=== PATIENT | female | born 1970 | race Caucasian/White ===

== ENCOUNTER 2018-03-02 18:37 | Inpatient (IN) | payer OTHER ==
--- NOTE | 2018-03-02 19:24 | PDOC.FPRHP ---
- History of Present Illness Chief Complaint: chest pain History of Present Illness: The patent is a F47 female who presented to the ED with a CC of chest pain radiating into her left arm and jaw that began around 2PM today while moving a patient at work. The patient describes the pain as pressure-like in character with associated left arm tingling. She says the pain has been constant since its onset and at its worst reached a 9/10 in severity. She denies exacerbation with exertion but endorses it with certain movements. Stated that the morphine given to her in [place] helped bring it down to a 5-6/ 10 but did not want another dose because it made her feel funny. She denies any associated N/V, diaphoresis, or SOB. Does report a headache and mild swelling in her ankles. Of note, the patient reported that she began to have chest pain about 2 days ago that was more episodic in nature and felt more like heartburn so she deferred coming in to be evaluated. However, she reported that the pain today was much worse than her previous pain which prompted her to come into the ED. ED Course: 1 inch of nitropaste, 324mg ASA, 4mg IV morphine, 1g tylenol - Allergies/Adverse Reactions Allergies Allergy/AdvReac Type Severity Reaction Status Date / Time No Known Allergies Allergy Verified 03/02/18 20:30 - Home Medications Medication Instructions Recorded Confirmed Type Lisinopril/Hydrochlorothiazide 1 tablet PO DAILY 03/02/18 03/02/18 History [Lisinopril-Hctz 20-25 mg Tab] - History PMHx: HTN PSHx: hysterectomy FHx: Father- from an [place] Mother- Breast CA, HTN Sister- breast CA Social: Current everyday smoker w/ a 66 pack year smoking history. EtOH use socially. No drug use. Lives at home alone. 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 - Review of Systems General: denies: fever/chills, weight/appetite/sleep changes Eyes: reports: other (blurred vision but no scotomas). denies: eye pain ENT: reports: other (no sore throat). denies: nasal congestion Respiratory: reports: cough. denies: shortness of breath Cardiovascular: reports: chest pain, edema. denies: palpitation Gastrointestinal: reports: constipation. denies: nausea, vomiting, diarrhea, abdominal pain Skin: denies: rashes, itching Musculoskeletal: reports: swelling. denies: arthritis/arthralgias Neurological: reports: numbness. denies: weakness Psychological: denies: anxiety, depression - Vital signs BP: 106/64 HR: 66 RR: 18 Tmax: 98.0F Pox: 97% on RA Wt: 93.077kg - Physical Exam Constitutional: NAD, awake, alert and oriented, well developed HEENT: normocephalic and atraumatic, grossly normal vision, grossly normal hearing, MMM, oropharynx clear, other (poor dentition) Neck: supple, FROM, no bruits Chest: other (TTP along sternum and under left breast) Heart: RRR, normal S1/S2, pulses present, no edema Lungs: CTAB, no respiratory distress, good air movement, no rales/rhonchi, no wheezing, no retractions Abdomen: soft, non-tender, bowel sounds present Musculoskeletal: normal structure, ROM grossly normal Neurological: no focal deficit, CN II-XII intact (grossly), normal sensation Skin: no rash/lesions, good turgor, no jaundice Heme/Lymphatic: no unusual bruising or bleeding, no purpura, no petechia Psychiatric: normal mood and affect, good judgment and insight, intact recent and remote memory FMR H&P: Results - Labs Lab results: Plt: 447 D-dimer: 0.29 CK: 132 Troponin-I: <0.010 - EKG Interpretation EKG: NSR with no ST changes noted. - Radiology Interpretation Chest x-ray Status: report reviewed by me (no acute cardiopulmonary findings) FMR H&P: A/P - Problem List (1) Atypical chest pain Current Visit: Yes Status: Acute Code(s): R07.89 - OTHER CHEST PAIN (2) HTN (hypertension) Current Visit: Yes Status: Acute Code(s): I10 - ESSENTIAL (PRIMARY) HYPERTENSION (3) Tobacco use Current Visit: Yes Status: Acute Code(s): Z72.0 - TOBACCO USE (4) Thrombocytosis Current Visit: Yes Status: Acute (5) Leukocytosis Current Visit: Yes Status: Acute Code(s): D72.829 - ELEVATED WHITE BLOOD CELL COUNT, UNSPECIFIED - Plan 47YOF with a PMH significant for HTN who presented to the ED with a CC of substernal chest pain that began hours prior to her presentation. Atypical chest pain: - Patient reported substernal chest pain on exam but was TTP along sternum and under left breast. EKG was negative for any acute ST changes and initial troponin was WNLS. DDx includes ACS vs. costocondritis vs. GERD. - Will give a one time dose of toradol and a GI cocktail to evaluate for improvement and d/c the nitro patch and have PO tylenol and nitrostat available PRN as well. - FLP and TSH pending with AM labs. - Will admit for close observation overnight on telemetry as HEART score is a 4 given FH and personal h/o smoking and HTN. - Will make NPO for a stress test in the AM and consult cardiology PRN if stress is positive. HTN: - Aware, will resume home meds. Tobacco use: - Aware, will bereavement counselor on cessation. Leukocytosis: - Mildly elevated WBC of 12.8. - Patient has been afebrile with normal vitals since admission w/ a negative CXR. - Likely 2/2 inflammation from tobacco use. - Will continue to monitor vitals closely with a repeat CBC in the AM. Thrombocytosis: - Mildly elevated platelet count at 447. - Likely 2/2 tobacco use. - Will continue to follow with a repeat CBC in the AM. FMR H&P: Upper Level - Pertinent history 47 yr old female with PMH of tobacco abuse and HTN who presents to ER for c/o chest pain with onset this afternoon while lifting a patient at a longterm. Described as chest tightness, radiates to left shoulder. Not associated with SOB , nausea, or diaphoresis. Morphine helped a little but nitro didnt seem to improve pain. Smokes 2 PPD since age 14. Father passed of [place]. - Pertinent findings EKG: normal sinus rhythm without ST changes Gen: No acute distress, resting in bed Heart: RRR, no murmur, rubs, gallops Lungs: CTAB, no wheezes, rhales, rhonchi Chest: pain reproducible along left sternal border and below left breast Neuro: no focal deficits - Plan Date/Time: 03/02/181917 I, [Danielle Casiano], have evaluated this patient and agree with findings/plan as outlined by internet ecommerce specialist resident. Pertinent changes/additions are listed here. 47 yr old female with PMH of tobacco abuse and HTN with chest pain. Atypical chest pain, ACS r/o -suspect musculoskeletal cause given reproducibility and no associated symptoms c/w ACS -however given heart score of 4, will plan for treadmill stress test in AM -check FLP -if AM FBG elevated, recommend checking AIC -Trop neg x 2, EKG neg HTN -resume home meds Tobacco abuse -smoking cessation counseling provided PCP: Harsh Diet: HH, then NPO after midnight Code Status: FULL DVT ppx: SCDs GI ppx: none Dispo: Admit to observation and likely discharge in less than 2 midnights. Addendum - Attending - Attending Attestation Date/Time: 03/02/18 0508 I personally evaluated the patient and discussed the management with Dr. Teague I agree with the History, Examination, Assessment and Plan documented above with any addition or exceptions noted below- 47 yo female with h/o HTN and tobacco abuse presented c/o chest pain radiating into her left arm and jaw that began around 2PM today while moving a patient at work. The patient describes the pain as pressure-like in character with associated left arm tingling. Has not had prior symptoms. No prior cardiac evaluation. Denies any associated diaphoresis, N/V, or SOB. PMH/PSH/Meds/All reviewed and agree with resident's documentation. Afebrile P62 BP 126/75, RR 16 95%RA Exam repeated by me and agree with resident's findings. Labs: WBC= 12.5, H/H=13.5/41.3, Jc=178, K=3.8, WX=506, CO2=23, BUN/Cr=17/0.70, Eifb=886, AST/ALT=17/22, Trop I <0.010 x 2. EKG - NSR, no ST changes. A/P: 1) Chest pain - Heart score = 4; Continue serial cardiac enzymes. Plan for stress test in AM.
[2018-03-02] MEDS ORDERED: Ondansetron ODT 4 MG TAB SL PRN (21:25)
[2018-03-02] MEDS ORDERED: Ondansetron PF 4 MG/2 ML Vial IVP PRN (21:25)
[2018-03-02 21:37] VITALS: BMI 32.1
[2018-03-02] MEDS ORDERED: Ondansetron ODT 4 MG TAB PO PRN (21:48)
[2018-03-02] MEDS ORDERED: Nitroglycerin 0.4 MG TAB (25 Tab Bottle) PO PRN (21:48)
[2018-03-02] MEDS ORDERED: Lidocaine 2% Viscous Solution 10 ML, Aluminum & Magnesium Hydroxide 30 ML SSW SCH (22:15)
[2018-03-02] MEDS ORDERED: Ketorolac Tromethamine 30 MG/ML VIAL IVP SCH (22:15)
[2018-03-02] MEDS: Nicotine 14 MG PATCH TD SCH (22:23)
[2018-03-02 23:54] LABS: Troponin I Less than 0.010 ng/mL (< 0.028)
[2018-03-03 02:08] LABS: Troponin I Less than 0.010 ng/mL (< 0.028)
[2018-03-03] MEDS: Acetaminophen 325 MG TAB PO PRN ×2 (04:01→08:42)
[2018-03-03 05:56] LABS: #Eosinphils 0.4 thou/uL (0.0-0.7); #Lymphocytes 3.7 thou/uL (1.20-3.40); #Monocytes 0.9 thou/uL (0.11-0.59); #Neutrophils 4.4 thou/uL (1.40-6.50); %Basophils 0.5 % (0.0-1.0); %Eosinophils 3.8 % (0.0-10.0); %Lymphocytes 39.4 % (21.0-51.0); %Monocytes 9.3 % (0.0-10.0); %Neutrophils 46.9 % (42.0-75.0); Hemoglobin 12.7 g/dL (12.0-16.0); Mean Corpuscular HGB CONC 32.8 g/dL (32.0-36.0); Mean Corpuscular Hemoglobin 28.4 pg (27.0-31.0); Mean Corpuscular Volume 86.3 fL (78.0-98.0); Mean Platelet Volume 7.7 fL (7.4-10.4); Platelet Count 380 thou/uL (130-400); RBC Distribution Width 12.1 % (11.5-14.5); Red Blood Cell (RBC) Count 4.47 mill/uL (4.20-5.40); White Blood Cell (WBC) Count 9.3 thou/uL (4.8-10.8)
[2018-03-03 06:28] LABS: Anion Gap 12 mmol/L (10-20); BUN (Urea Nitrogen) 20 mg/dL (7.0-18.7); Calc. Creatinine Clearance 137 mL/min (70-130); Calcium 8.5 mg/dL (7.8-10.44); Carbon Dioxide 24 mmol/L (22-29); Cardiac Risk 9.6 (Less than 4.5); Chloride 109 mmol/L (98-107); Cholesterol 221 mg/dl (< 200 Desired); Estimated GFR-MDRD 84; Glucose 123 mg/dL (70-105); HDL Cholesterol 23 mg/dL (>60 Neg Risk); Potassium 3.9 mmol/L (3.5-5.1); Sodium 141 mmol/L (136-145); Triglycerides 461 mg/dL (Less than 150)
[2018-03-03] MEDS: Lisinopril/Hydrochlorothiazide 10 mg/12.5 mg Tablet PO SCH (08:43)
--- NOTE | 2018-03-03 08:58 | PDOC.FM ---
- Subjective Subjective: The patient states that chest pain is improved. She complains of a headache this morning. - Objective Vital Signs & Weight: Vital Signs (12 hours) Temp Pulse Resp BP BP Pulse Ox 03/03/18 08:43 66 03/03/18 08:20 96 03/03/18 07:29 97.6 F 66 17 156/73 H 96 03/03/18 04:01 90 18 138/74 93 L 03/02/18 23:35 97.9 F 74 16 108/55 L 93 L 03/02/18 21:15 98.0 F 62 16 126/75 95 Weight Weight 93.077 kg Result Diagrams: 03/03/18 05:34 03/03/18 05:34 Dx/Plan (1) Atypical chest pain Code(s): R07.89 - OTHER CHEST PAIN Status: Acute (2) HTN (hypertension) Code(s): I10 - ESSENTIAL (PRIMARY) HYPERTENSION Status: Acute (3) Leukocytosis Code(s): D72.829 - ELEVATED WHITE BLOOD CELL COUNT, UNSPECIFIED Status: Acute (4) Thrombocytosis Status: Acute (5) Tobacco use Code(s): Z72.0 - TOBACCO USE Status: Acute - Plan Plan: Atypical chest pain: - Patient reported substernal chest pain on exam but was TTP along sternum and under left breast. - EKG was negative for any acute ST changes and initial troponin was WNLs - PO tylenol and nitrostat available PRN - FLP and TSH wnl - stress test today and consult cardiology if stress is positive. HTN: - Aware, will resume home meds. HLD - begin high dose statin therapy Tobacco use: - Aware, will pastoral counselor on cessation. Leukocytosis: - Mildly elevated WBC of 12.8. - Patient has been afebrile with normal vitals since admission w/ a negative CXR - Will continue to monitor vitals closely with a repeat CBC in the AM. Thrombocytosis: - Mildly elevated platelet count at 447. - Likely 2/2 tobacco use. - Will continue to follow with a repeat CBC in the AM. code: full ppx: lovenox Dispo: poss DC with neg stress Addendum - Attending - Attending Attestation Date/Time: 03/03/18 3122 I personally evaluated the patient and discussed the management with Dr. Judd. I agree with the History, Examination, Assessment and Plan documented above with any addition or exceptions noted below. The patient presented with chest pain. She will have a stress test today. If negative, will consult cardiology.
[2018-03-03] MEDS ORDERED: Ibuprofen 600 MG TAB PO PRN (09:28)
[2018-03-03] MEDS ORDERED: Regadenoson 0.4 MG/5 ML SYRINGE ONE (15:36)
--- NOTE | 2018-03-03 16:28 | NM ---
MYOCARDIAL PERFUSION SCAN: Date: 03/03/18 INDICATION: Chest pain. The patient was given 9 mCi of technetium sestamibi for rest imaging and 30 mCi for stress imaging. P atient was stressed with exercise according to Shan protocol. Patient obtained 58% of maximal age-pr edicted heart rate. Left ventricle was imaged with SPECT imaging and CT attenuation performed. FINDINGS: There is a small reversible defect seen in the anterior wall. Activity is otherwise normal. No wall motion abnormality. Ejection fraction recorded at 57%. IMPRESSION: Evidence of reversible ischemic in the anterior wall. POS: [place]
[2018-03-03] MEDS: Nicotine 14 MG PATCH TD SCH (20:36)
[2018-03-03] MEDS ORDERED: Atorvastatin Calcium 40 MG TAB PO SCH (21:00)
--- NOTE | 2018-03-04 07:08 | PDOC.FM ---
- Subjective Subjective: Ms. Romero is resting comfortably in bed, she reports headache. She denies CP or shortness of breath. - Objective Vital Signs & Weight: Vital Signs (12 hours) Temp Pulse Resp BP BP Pulse Ox 03/04/18 04:25 56 L 18 111/56 L 98 03/03/18 23:15 98.2 F 78 16 106/53 L 94 L 03/03/18 19:40 98.6 F 60 20 126/58 L 93 L Weight Weight 93.077 kg I&O: 03/02/18 03/03/18 03/04/18 06:59 06:59 06:59 Intake Total 360 Balance 360 Result Diagrams: 03/03/18 05:34 03/03/18 05:34 Phys Exam - Physical Examination Constitutional: NAD HEENT: moist MMs Neck: no nodes Respiratory: clear to auscultation bilateral Cardiovascular: RRR, no significant murmur, no rub Gastrointestinal: soft, non-tender Musculoskeletal: no edema, pulses present Neurological: non-focal Psychiatric: normal affect Skin: no rash Dx/Plan (1) HTN (hypertension) Code(s): I10 - ESSENTIAL (PRIMARY) HYPERTENSION Status: Acute (2) Leukocytosis Code(s): D72.829 - ELEVATED WHITE BLOOD CELL COUNT, UNSPECIFIED Status: Acute (3) Thrombocytosis Status: Acute (4) Tobacco use Code(s): Z72.0 - TOBACCO USE Status: Acute (5) Unstable angina Status: Acute - Plan Plan: unstable angina: - Patient reported substernal chest pain on exam but was TTP along sternum and under left breast. - EKG was negative for any acute ST changes and initial troponin was WNLs - PO tylenol and nitrostat available PRN - FLP and TSH wnl - stress positive for reversible ischemia - cardiology consulted, appreciate recs HTN: - Aware, will resume home meds. HLD - begin high dose statin therapy Tobacco use: - Aware, will correctional substance abuse counselor on cessation. Leukocytosis: - Mildly elevated WBC of 12.8. - Patient has been afebrile with normal vitals since admission w/ a negative CXR - Will continue to monitor vitals closely with a repeat CBC in the AM. Thrombocytosis: - Mildly elevated platelet count at 447. - Likely 2/2 tobacco use. - Will continue to follow with a repeat CBC in the AM. code: full ppx: lovenox Dispo: positive stress yesterday, cardiology recs today Addendum - Attending - Attending Attestation Date/Time: 03/04/18 0483 I personally evaluated the patient and discussed the management with Dr. Judd. I agree with the History, Examination, Assessment and Plan documented above with any addition or exceptions noted below. The patient is doing well this morning. Stress test was positive for reversible ischemia. Consulting cardiology today and reported that she will have a cath tomorrow.
[2018-03-04] MEDS: Lisinopril/Hydrochlorothiazide 10 mg/12.5 mg Tablet PO SCH (09:13)
[2018-03-04] MEDS: Acetaminophen 325 MG TAB PO PRN (09:14)
--- NOTE | 2018-03-04 14:20 | PDOC.EVN ---
Event Note - Event Note Event Note: stress test positive for reversible ischemia, pt requires inpatient admission for evaluation and possible left heart catheterization
[2018-03-04] MEDS ORDERED: Communication Order-Pharmacy FS SCH (19:30)
[2018-03-04] MEDS: Atorvastatin Calcium 40 MG TAB PO SCH (20:25)
--- NOTE | 2018-03-05 02:37 | CON ---
DATE OF CONSULTATION: HISTORY OF PRESENT ILLNESS: Ivania Romero is a 47-year-old white female who came to the hospital for chest discomfort. She had some lower sternal pain the day before and she thought it was indigestion. 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 The pain was somewhat pleuritic in nature and was worse with movement. 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 She was given intravenous morphine there, which improved the discomfort, but she did not wish any more morphine. She was then transferred here for further evaluation. Cardiac enzymes have been unremarkable. She then underwent a Cardiolite scan, which revealed a small reversible defect in the anterior wall. PAST MEDICAL HISTORY: Hypertension. She has hypercholesterolemia. No history of diabetes. HOME MEDICATIONS: 1. Lisinopril/hydrochlorothiazide 20/25 daily. 2. Atorvastatin 40 at bedtime. PAST SURGICAL HISTORY: Hysterectomy. SOCIAL HISTORY: She smokes two packs per day. She occasionally drinks. FAMILY HISTORY: Mother and father have myocardial infarction. REVIEW OF SYSTEMS: A 12-point review of systems is otherwise unremarkable. PHYSICAL EXAMINATION: VITAL SIGNS: Blood pressure 117/60, pulse of 54. HEENT: PERRL. NECK: Supple. CHEST: Clear. CARDIAC: S1 and S2 normal without any S3, S4, murmurs. Carotid upstrokes normal without bruits. ABDOMEN: Obese. Normal bowel sounds. No tenderness. EXTREMITIES: Revealed no clubbing, cyanosis, or edema. NEUROLOGIC: Grossly intact. SKIN: Warm and dry. MUSCULOSKELETAL: Revealed palpable chest wall tenderness that seems to reproduce some of her pain. LABORATORY DATA: EKG reveals normal sinus rhythm and is unremarkable Cardiolite findings as noted above. Cardiac enzymes are normal. Sodium 141, potassium 3.9 , chloride 109, carbon dioxide 24, BUN 20, creatinine 0.74, and glucose 173. Hemoglobin A1c 6.0. Cholesterol 221, triglycerides 461, and HDL 23. TSH is normal. Hemoglobin 12.7, hematocrit 38.6, and white count 9300. IMPRESSION: 1. Atypical chest discomfort with palpable chest wall tenderness, although she does have multiple cardiac risk factors and abnormal Cardiolite. 2. Hypertension. 3. Hypercholesterolemia under very poor control. 4. Smoker. 5. Positive family history. 6. Obesity. PLAN: Situation was discussed with patient. It was recommend that she undergo cardiac catheterization. Risks have been discussed including , myocardial infarction, dye reaction, vascular injury, CVA, transfusion, limb loss, renal loss, etc. Also risk of intervention with PTCA and stent placement were discussed including , myocardial infarction, emergent CABG, restenosis, stent thrombosis, vessel perforation, etc. She has never had any gastrointestinal bleeding. She has never had a stroke. She does not have any upcoming surgeries. It was recommended that a drug-eluting stent be placed if required. Job ID: [id number] MTDD
[2018-03-05] MEDS: Acetaminophen 325 MG TAB PO PRN (04:03)
--- NOTE | 2018-03-05 06:29 | PDOC.FM ---
- Subjective Subjective: Ms. Romero is resting comfortably in bed, she denies chest pain or SOB. - Objective Vital Signs & Weight: Vital Signs (12 hours) Temp Pulse Resp BP Pulse Ox 03/05/18 04:01 98.3 F 62 20 111/63 93 L 03/04/18 19:05 97.8 F 60 20 125/60 95 Weight Weight 94.256 kg I&O: 03/03/18 03/04/18 03/05/18 06:59 06:59 06:59 Intake Total 360 2140 Balance 360 2140 Result Diagrams: 03/03/18 05:34 03/03/18 05:34 Phys Exam - Physical Examination Constitutional: NAD HEENT: moist MMs Neck: no JVD Respiratory: clear to auscultation bilateral Cardiovascular: RRR, no significant murmur Gastrointestinal: soft, non-tender Musculoskeletal: no edema, pulses present Neurological: non-focal Psychiatric: normal affect Skin: no rash Dx/Plan (1) Atypical chest pain Code(s): R07.89 - OTHER CHEST PAIN Status: Acute (2) HTN (hypertension) Code(s): I10 - ESSENTIAL (PRIMARY) HYPERTENSION Status: Acute (3) Leukocytosis Code(s): D72.829 - ELEVATED WHITE BLOOD CELL COUNT, UNSPECIFIED Status: Acute (4) Thrombocytosis Status: Acute (5) Tobacco use Code(s): Z72.0 - TOBACCO USE Status: Acute - Plan Plan: atypical chest pain: - Patient reported substernal chest pain on exam but was TTP along sternum and under left breast. - EKG was negative for any acute ST changes and initial troponin was WNLs - PO tylenol and nitrostat available PRN - FLP and TSH wnl - stress positive for reversible ischemia - cardiology consulted, cath 03/07 HTN: - Aware, will resume home meds. HLD - begin high dose statin therapy Tobacco use: - Aware, will summer camp counselor on cessation. Leukocytosis: - Mildly elevated WBC of 12.8. - Patient has been afebrile with normal vitals since admission w/ a negative CXR - Will continue to monitor vitals closely with a repeat CBC in the AM. Thrombocytosis: - Mildly elevated platelet count at 447. - Likely 2/2 tobacco use. - Will continue to follow with a repeat CBC in the AM. code: full ppx: lovenox Dispo: await cath on 03/07 Addendum - Attending - Attending Attestation Date/Time: 03/05/18 1013 I personally evaluated the patient and discussed the management with Dr. Judd. I agree with the History, Examination, Assessment and Plan documented above with any addition or exceptions noted below. Patient will be having a cath on wednesday. No chest pain at this time. Pt is ambulating in the hallways. Statin has been started.
[2018-03-05] MEDS: Lisinopril/Hydrochlorothiazide 20/25 mg Tablet PO SCH (08:13)
[2018-03-05] MEDS: Atorvastatin Calcium 40 MG TAB PO SCH (20:28)
[2018-03-05] MEDS: Fish Oil 1,000 MG CAP PO SCH (20:28)
[2018-03-06] MEDS: Sodium Chloride 0.9% 1,000 ML IV SCH ×2 (05:21→13:19)
--- NOTE | 2018-03-06 06:34 | PDOC.FM ---
- Subjective Subjective: Ms. Romero is resting comfortably in bed, she is anxious to go home. She denies shortness of breath, but describes substernal burning pain occasionally, not as bad as when she initially came in - Objective Vital Signs & Weight: Vital Signs (12 hours) Temp Pulse Resp BP Pulse Ox 03/06/18 04:00 98.0 F 74 21 H 121/63 94 L 03/05/18 19:15 98.1 F 60 18 117/57 L 96 Weight Weight 95.889 kg I&O: 03/04/18 03/05/18 03/06/18 06:59 06:59 06:59 Intake Total 360 2140 960 Balance 360 2140 960 Result Diagrams: 03/03/18 05:34 03/03/18 05:34 Phys Exam - Physical Examination Constitutional: NAD HEENT: moist MMs Neck: no JVD Respiratory: clear to auscultation bilateral Cardiovascular: RRR, no significant murmur Gastrointestinal: soft, no distention Musculoskeletal: no edema, pulses present Neurological: moves all 4 limbs Lymphatic: no nodes Psychiatric: normal affect Skin: no rash Dx/Plan (1) Atypical chest pain Code(s): R07.89 - OTHER CHEST PAIN Status: Acute (2) HTN (hypertension) Code(s): I10 - ESSENTIAL (PRIMARY) HYPERTENSION Status: Acute (3) Leukocytosis Code(s): D72.829 - ELEVATED WHITE BLOOD CELL COUNT, UNSPECIFIED Status: Acute (4) Thrombocytosis Status: Acute (5) Tobacco use Code(s): Z72.0 - TOBACCO USE Status: Acute - Plan Plan: atypical chest pain: - Patient reported substernal chest pain on exam but was TTP along sternum and under left breast. - EKG was negative for any acute ST changes and initial troponin was WNLs - PO tylenol and nitrostat available PRN - FLP and TSH wnl - stress positive for reversible ischemia - cardiology consulted, cath 03/07 HTN: - Aware, will resume home meds. HLD - begin high dose statin therapy Tobacco use: - Aware, will counseling program leader on cessation. GERD - possibly distinct symptoms from presenting complain - trial of protonix Leukocytosis: - Mildly elevated WBC of 12.8. - Patient has been afebrile with normal vitals since admission w/ a negative CXR - Will continue to monitor vitals closely with a repeat CBC in the AM. Thrombocytosis: - Mildly elevated platelet count at 447. - Likely 2/2 tobacco use. - Will continue to follow with a repeat CBC in the AM. code: full ppx: lovenox Dispo: await cath on 03/07 Addendum - Attending - Attending Attestation Date/Time: 03/06/18 8313 I personally evaluated the patient and discussed the management with Dr. Judd. I agree with the History, Examination, Assessment and Plan documented above with any addition or exceptions noted below. The patient noted some burning chest pain yesterday that was different than the pain when she came to the ER. Adding protonix as this may be due to GERD. Pt will have cath tomorrow.
[2018-03-06] MEDS: Lisinopril/Hydrochlorothiazide 20/25 mg Tablet PO SCH (08:40)
[2018-03-06] MEDS: Fish Oil 1,000 MG CAP PO SCH ×2 (08:40→20:57)
[2018-03-06] MEDS: Acetaminophen 325 MG TAB PO PRN (16:06)
[2018-03-06] MEDS: Atorvastatin Calcium 40 MG TAB PO SCH (20:56)
--- NOTE | 2018-03-07 06:02 | PDOC.FM ---
- Subjective Subjective: No overnight events. Patient sitting up on side of bed this AM. Patient complains of SOB, she states this is her baseline. Patient states she did have a brief episode of stabbing chest pain yesterday afternoon. She said it resolved after seconds, no other symptoms. Denies any other episodes of chest pain since yesterday. Patient states she is ready for the procedure today. - Objective Vital Signs & Weight: Vital Signs (12 hours) Temp Pulse Resp BP Pulse Ox 03/07/18 04:30 98.5 F 64 16 115/56 L 96 03/06/18 19:20 98.0 F 61 16 130/60 95 Weight Weight 95.889 kg I&O: 03/05/18 03/06/18 03/07/18 06:59 06:59 06:59 Intake Total 2140 960 240 Balance 2140 960 240 Result Diagrams: 03/03/18 05:34 03/03/18 05:34 Phys Exam - Physical Examination Constitutional: NAD HEENT: PERRLA, moist MMs, sclera anicteric Neck: supple, full ROM Respiratory: clear to auscultation bilateral Cardiovascular: RRR non TTP Gastrointestinal: soft, non-tender, no distention, positive bowel sounds Musculoskeletal: no edema Neurological: moves all 4 limbs Psychiatric: normal affect Dx/Plan (1) Atypical chest pain Code(s): R07.89 - OTHER CHEST PAIN Status: Acute (2) HTN (hypertension) Code(s): I10 - ESSENTIAL (PRIMARY) HYPERTENSION Status: Acute (3) Leukocytosis Code(s): D72.829 - ELEVATED WHITE BLOOD CELL COUNT, UNSPECIFIED Status: Acute (4) Thrombocytosis Status: Acute (5) Tobacco use Code(s): Z72.0 - TOBACCO USE Status: Acute (6) Unstable angina Status: Acute - Plan Plan: Atypical chest pain - Patient reported substernal chest pain on exam; TTP along sternum and under left breast - EKG was negative for any acute ST changes and initial troponin was WNLs - PO tylenol and nitrostat available PRN - TSH wnl; FLP: total cholesterol 222, TG 461, LDL unable to perform, HDL 23 - will start high dose statin - stress positive for reversible ischemia of anterior wall - cardiology consulted, cath planned for 03/07 HTN - Aware, will resume home meds. HLD - begin high dose statin therapy Tobacco use - Aware, will juvenile counselor on cessation. GERD - possibly distinct symptoms from presenting complain - trial of protonix Leukocytosis - Mildly elevated WBC of 12.8. - Patient has been afebrile with normal vitals since admission w/ a negative CXR - Will continue to monitor vitals closely with a repeat CBC in the AM. Thrombocytosis - Mildly elevated platelet count at 447. - Likely 2/2 tobacco use. - Will continue to follow with repeat CBC code: full ppx: lovenox Dispo: await cath on 03/07 Addendum - Attending - Attending Attestation Date/Time: 03/07/18 1340 I personally evaluated the patient and discussed the management with Dr. Theodore I agree with the History, Examination, Assessment and Plan documented above with any addition or exceptions noted below. Young female with positive risk factors for HD and positive stress test for Heart Cath today.
[2018-03-07] MEDS: Lisinopril/Hydrochlorothiazide 20/25 mg Tablet PO SCH (06:08)
[2018-03-07] MEDS: Fish Oil 1,000 MG CAP PO SCH (06:08)
[2018-03-07] MEDS: Sodium Chloride 0.9% 1,000 ML IV SCH ×2 (06:09→16:15)
[2018-03-07] MEDS ORDERED: Iopamidol 370 76% 50 ML VIAL FS ONE (10:00)
[2018-03-07] MEDS ORDERED: Iopamidol 370 76% 100 ML VIAL ONE (10:00)
[2018-03-07] MEDS ORDERED: Heparin 10,000 UNITS/1 ML VIAL ONE (10:14)
[2018-03-07] MEDS ORDERED: Fentanyl 100 MCG/2 ML VIAL ONE (11:21)
[2018-03-07] MEDS ORDERED: Midazolam HCl 2 mg/2 ml Vial ONE (11:21)
[2018-03-07] MEDS ORDERED: Lidocaine 1% (PF) 30 ML VIAL ONE (11:32)
[2018-03-07] MEDS ORDERED: Protamine Sulfate 50 MG/5 ML VIAL ONE (11:54)
[2018-03-07 18:21] VITALS: BP 111/62; TEMP 98.7
--- NOTE | 2018-03-10 10:01 | DIS ---
DATE OF ADMISSION: 03/02/2018 DATE OF DISCHARGE: 03/07/2018 RESIDENT: Elvira Theodore MD ADMITTING ATTENDING: Dr. Aviles. DISCHARGE ATTENDING: Dr. Jeffries. CONSULT: Cardiology. PROCEDURE: Catheterization on 03/07/2018. PRIMARY DIAGNOSIS: Atypical chest pain - Unstable angina SECONDARY DIAGNOSES: Hypertension, hyperlipidemia, tobacco use, gastroesophageal reflux disease, leukocytosis, and thrombocytosis. DISCHARGE MEDICATIONS: 1. Aspirin 81 mg daily. 2. Fish oil 2000 mg oral twice daily. 3. Lipitor 80 mg oral at bedtime. 4. Lisinopril/hydrochlorothiazide one tablet oral daily. DISCONTINUED MEDICATIONS: None. HISTORY OF PRESENT ILLNESS/HOSPITAL COURSE: This is a 47-year-old female, who presented to the emergency department with a chief complaint of chest pain radiating into her left arm and jaw that began earlier that day. The patient described the pain as pressure-like with left arm tingling. The patient said that the pain had been constant since its onset and had reached a 9/10 pain in severity. The patient stated that the pain was worse with certain movements. The patient was given morphine at the [place] [facility], which helped to bring the pain to a 5/10 or 6/10. The patient denied nausea, vomiting, diaphoresis, or shortness of breath during this episode. Of note, the patient had chest pain two days prior to this episode that was more episodic in nature and felt like heartburn. In the ED, the patient was given nitroglycerin paste, aspirin, morphine, and Tylenol. The patient had vital signs within normal limits on presentation. The patient had negative troponin x3. The patient was found to have a total cholesterol of 221 and triglycerides 461, LDL unable to be obtained. The patient had a normal TSH and lipase. The patient had a hemoglobin A1c of 6. EKG was negative for any acute ST changes. HEART score of 4 on presentation. The patient was also found to have an elevated platelet count of 447 on admission, likely secondary to tobacco use. The patient was scheduled for a stress test. This stress test resulted positive for reversible ischemia, and Cardiology was consulted. The patient was scheduled for a catheterization procedure that occurred on 03/07/2018. No stents were placed during this procedure. The patient was counseled on tobacco cessation. The patient was sent home on Lipitor for cholesterol management. DISPOSITION: Stable. DISCHARGE INSTRUCTIONS: 1. Location: Home. 2. Diet: Heart healthy, low-sodium. 3. Activity: Ad lilian. 4. Follow up with PCP within one week and follow up with Cardiology, Dr. Baird on 06/02/2018. Job ID: [id number] [email or web address]
== END 2018-03-07 18:55 | disposition home or self-care (01) | DRG 287 ==
LOC: ERS 18:37 → 2SW 21:27 → OBSVTOIN 21:27 → 2NO 03-06 14:24
PROVIDERS: ADMIT Family Medicine; ATTEND Family Medicine
PROC: 4A023N7 Measurement of Cardiac Sampling and Pressure, Left Heart, Percutaneous Approach (ICD-10-PCS; principal; 2018-03-07)
PROC: B2111ZZ Fluoroscopy of Multiple Coronary Arteries using Low Osmolar Contrast (ICD-10-PCS; 2018-03-07)
PROC: B2151ZZ Fluoroscopy of Left Heart using Low Osmolar Contrast (ICD-10-PCS; 2018-03-07)
DX: R07.89 Other chest pain (principal); I25.110 Atherosclerotic heart disease of native coronary artery with unstable angina pectoris; F17.210 Nicotine dependence, cigarettes, uncomplicated; I10 Essential (primary) hypertension; D72.829 Elevated white blood cell count, unspecified; D47.3 Essential (hemorrhagic) thrombocythemia; E66.9 Obesity, unspecified; E78.5 Hyperlipidemia, unspecified; Z79.899 Other long term (current) drug therapy; K21.9 Gastro-esophageal reflux disease without esophagitis; Z68.32 Body mass index [BMI] 32.0-32.9, adult
CPT/HCPCS: 36415; 76942; 78452; 80048; 80061; 83036; 83690; 84443; 84484; 85025; 85347; 90471; 90732; 93005; 93017; 93458; 94760; 99152; 99153; A9500; C1769; G0009; J1644; J1885; J2001; J2250; J2720; J2785; J3010

== ENCOUNTER 2018-10-26 18:54 | Observation (INO) | payer OTHER, SELFPAY ==
[2018-10-26] MEDS ORDERED: Nitroglycerin 2% Ointment 1 INCH/1 GM Packet ONE (19:23)
[2018-10-26] MEDS ORDERED: Aspirin Chewable 81 MG TAB ONE (19:23)
[2018-10-26 21:02] LABS: Troponin I Less than 0.010 ng/mL (< 0.028)
[2018-10-26 21:08] LABS: Troponin I Less than 0.010 ng/mL (< 0.028)
[2018-10-26 21:15] VITALS: BMI 36.5
[2018-10-26] MEDS ORDERED: Ondansetron ODT 4 MG TAB PO PRN (21:18)
[2018-10-26] MEDS ORDERED: Ondansetron ODT 4 MG TAB SL PRN (21:18)
[2018-10-26] MEDS ORDERED: Nitroglycerin 0.4 MG TAB (25 Tab Bottle) PO PRN (21:18)
[2018-10-26] MEDS ORDERED: Sodium Chloride 0.9% 1,000 ML IV SCH (21:18)
[2018-10-26] MEDS ORDERED: Ondansetron PF 4 MG/2 ML Vial IVP PRN (21:18)
--- NOTE | 2018-10-26 22:01 | PDOC.FPRHP ---
- History of Present Illness Chief Complaint: chest pain History of Present Illness: 48 y/o F with CAD, HTN, and PVD presents to the ED after having CP on and off all day (10/26). Pt states it came on while at work sitting in the dining [place]. She states that the pain radiates down her L-arm causing tingling in her left hand. The pain is also present in her L-shoulder and L-neck. She describes the pain as very heavy and burning in her arms and sharp/stabbing at her chest. She took aspirin, which helped mildly with the chest pain. The pain was alleviated with rest and exacerbated with exertion. Pt denied any diaphoresis, N/V/abd pain or heart burn. Denies any recent illness , but states she has felt very tired the past X2 days needing much more sleep than normal. she c/o of generalized weakness and a mild headache. PCP Dr. Harsh MO[facility] ED Course: Trops negative EKG NSR - Allergies/Adverse Reactions Allergies Allergy/AdvReac Type Severity Reaction Status Date / Time No Known Allergies Allergy Verified 10/26/18 21:20 - Home Medications Medication Instructions Recorded Confirmed Type Aspirin Chewable [Aspirin Chewable 81 mg PO DAILY tab 03/07/18 10/26/18 Rx Tablet] Lisinopril/Hydrochlorothiazide 1 tablet PO DAILY 10/26/18 10/26/18 History [Lisinopril-Hctz 10-12.5 mg Tab] Metoprolol Succinate [Toprol Xl] 50 mg PO DAILY 10/26/18 10/26/18 History - History PMHx: CAD, PVD, HTN PSHx: Hysterectomy Cath in Feb 2018 showed 20% stenosis of LAD, LCx, and RCA FHx: mother: breast [place], [place] at 67 caused ; Father: [place] at 55 caused Social: smoked cigarettes for 25 years, 2ppd. Occasional glass of wine. No current drug use, but extensive past cocaine abuse. She states she has "been clean," for X3 years. - Review of Systems General: reports: fatigue. denies: fever/chills Eyes: denies: vision changes ENT: denies: nasal congestion, rhinorrhea Respiratory: reports: shortness of breath, exercise intolerance. denies: cough , congestion Cardiovascular: reports: chest pain, edema, orthopnea. denies: palpitation Gastrointestinal: denies: nausea, vomiting, diarrhea, abdominal pain Genitourinary: denies: incontinence Skin: denies: rashes, jaundice Musculoskeletal: reports: pain, tenderness Neurological: reports: numbness (l- arm and hand), weakness (generalized). denies: syncope, seizure Psychological: reports: anxiety (increased stress at work) - Vital signs BP: 115/57 HR: 87 RR: 19 Tmax: 98.1 Pox: 99% on RA Wt: 105.687 kg - Physical Exam Constitutional: NAD, awake, alert and oriented, well developed HEENT: normocephalic and atraumatic, PERRLA, EOMI, conjunctiva clear, no scleral icterus, grossly normal vision, grossly normal hearing, MMM, oropharynx clear Neck: supple, FROM, trachea midline, no LAD, no JVD Chest: no-tender to palpation, no lesions Heart: RRR, normal S1/S2 (distant heart sounds), no murmurs/rubs/gallops, pulses present -Heart: B LE 1+ pitting edema up to mid-lora Lungs: CTAB, no respiratory distress, good air movement, no rales/rhonchi, no wheezing, no retractions Abdomen: soft, non-tender, bowel sounds present, no masses/distention Musculoskeletal: normal structure, normal tone, ROM grossly normal Neurological: no focal deficit, normal sensation Skin: no rash/lesions, good turgor, capillary refill <2 seconds, no jaundice Heme/Lymphatic: no unusual bruising or bleeding, no purpura, no petechia Psychiatric: normal mood and affect, good judgment and insight, intact recent and remote memory FMR H&P: Results - Labs Lab results: Laboratory Tests 10/26/18 10/26/18 20:30 20:31 Troponin I Less than 0.010 Less than 0.010 - EKG Interpretation EKG: NSR FMR H&P: A/P - Problem List (1) Chest pain Current Visit: Yes Status: Acute Code(s): R07.9 - CHEST PAIN, UNSPECIFIED Qualifiers: Ischemic chest pain type: stable angina pectoris (2) HTN (hypertension) Current Visit: No Status: Acute Code(s): I10 - ESSENTIAL (PRIMARY) HYPERTENSION Qualifiers: Hypertension type: essential hypertension Qualified Code(s): I10 - Essential (primary) hypertension (3) History of cocaine abuse Current Visit: Yes Status: Resolved Code(s): F14.11 - COCAINE ABUSE, IN REMISSION (4) CAD (coronary artery disease) Current Visit: Yes Status: Acute Code(s): I25.10 - ATHSCL HEART DISEASE OF [place] CORONARY ARTERY W/O ANG PCTRS Qualifiers: Coronary Disease-Associated Artery/Lesion type: [place] artery [place] vs. transplanted heart: [place] heart Associated angina: with stable angina Qualified Code(s): I25.118 - Atherosclerotic heart disease of [place] coronary artery with other forms of angina pectoris - Plan 48 y/o F admitted to observation tele for acute coronary syndrome rule out. 1. Chest Pain, Most likely Stable Angina - worse with exertions, SOB with exertion, substernal, alleviated with rest - known CAD from cath done by Dr. Baird in February 2018 - Stress test ordered for AM, NPO after midnight - Trops negative - EKG normal sinus rhythm 2. HTN, well controlled - Continue home medications of lisinopril/HCTZ and metoprolol 3. Hx of PVD in LLE - diagnosed in April 2018 4. CAD - Stress test in AM - Dr. Baird is pt's copy preparer - Feb 2018 cath results: 20% stenosis of LAD, LCx, and RCA. EF 55% Code status: DNR DVT ppx: SCD's Diet: NPO after midnight for stress test Disposition/LOS: Pt admitted to Tele observation for anticipated less than 2 midnights FMR H&P: Upper Level - Pertinent history 48 yo female with known CAD and HTN presents for evaluation of chest pain. Patient had EKG and normal EKG. Patient had abnormal stress and heart cath that showed 20% stenosis in multiple vessels. Today she was at work and had chest pain with left arm heaviness. Please see contracts intern note above for further information. General: Female appears stated age, NAD HEENT: Moist mucous membranes CV: RRR, no murmurs Respiratory: CTA-bilaterally, no wheezing Abdomen: Soft, nontender, Normoactive BS Extremities: Moving all four symmetrically, no edema Neuro: No focal deficits Psych: A&O x3. Responds appropriately - Plan Date/Time: 10/26/181 IReymundo MD, have evaluated this patient and agree with findings/ plan as outlined by contracts intern resident. Pertinent changes/additions are listed here. 1. CAD - Known mild disease found on previous Cath - Ongoing symptoms will consult Cards in AM for determination of stress vs medical management 2. HTN - Continue home medications CODE STATUS: FULL CODE PCP: Dr. House Disposition: Stable, will admit to Telemetry for further evaluation. Addendum - Attending - Attending Attestation Date/Time: 10/26/18 7480 I personally evaluated the patient and discussed the management with Dr. Chua/ Hussein. I agree with the History, Examination, Assessment and Plan documented above with any addition or exceptions noted below. Patient with history of mild CAD with previous heart cath in 02/2018 here with 5 days of chest pain. Reports onset of pain randomly, midsternal, with radiation to jaw and left arm. Reports pressure and burning in sensation. Denies dyspnea, palpitations, diaphoresis. Reports occasional association with exertion but not always. Feels similar in nature to her pain in February. Exam is overall benign. Trops and EKG from outside hospital negative. Patient will be admitted for ACS r /o. Due to stress and cath within the past 1 year but with continued typical chest pain, will consult Cardiology in AM for further discussion .She may be candidate for long acting Nitro therapy for anginal type pain as it is unlikely her CAD has changed significantly in the last 8 months. Further mgmt per their recs and pending clinical course.
[2018-10-26] MEDS: Acetaminophen 325 MG TAB PO PRN (23:21)
[2018-10-27 03:14] LABS: Phosphorus 4.1 mg/dL (2.3-4.7)
[2018-10-27 03:15] LABS: Troponin I Less than 0.010 ng/mL (< 0.028)
[2018-10-27 03:17] LABS: Cardiac Risk 7.3 (Less than 4.5); Magnesium 2.1 mg/dL (1.6-2.6)
--- NOTE | 2018-10-27 06:04 | PDOC.FM ---
- Subjective Subjective: pt resting comfortably in bed, reports no chest pain or SOB overnight - Objective Vital Signs & Weight: Vital Signs (12 hours) Temp Pulse Resp BP Pulse Ox 10/27/18 03:55 98.2 F 80 17 108/57 L 96 10/26/18 23:37 98.1 F 87 19 115/57 L 99 10/26/18 21:10 97.5 F L 65 23 H 121/63 97 Weight Weight 105.687 kg Phys Exam - Physical Examination Constitutional: NAD HEENT: moist MMs Neck: no JVD Gastrointestinal: no distention Musculoskeletal: no edema Neurological: moves all 4 limbs Psychiatric: normal affect Skin: no rash Dx/Plan (1) Chest pain Code(s): R07.9 - CHEST PAIN, UNSPECIFIED Status: Acute Qualifiers: Ischemic chest pain type: stable angina pectoris (2) HTN (hypertension) Code(s): I10 - ESSENTIAL (PRIMARY) HYPERTENSION Status: Acute Qualifiers: Hypertension type: essential hypertension Qualified Code(s): I10 - Essential (primary) hypertension - Plan Plan: CAD - multiple risk factors, trop neg, EKG wnl - Known mild disease found on previous Cath in February - Ongoing symptoms will consult Cards for determination of stress vs medical management HTN - Continue home medications CODE STATUS: FULL CODE PCP: Dr. House Disposition: optimize medical mgmt Addendum - Attending - Attending Attestation Date/Time: 10/27/18 8948 I personally evaluated the patient and discussed the management with Dr. Judd. I agree with the History, Examination, Assessment and Plan documented above with any addition or exceptions noted below. Patient here for typical chest pain in the setting of recent heart cath and known CAD. Will discuss case with cardiology this morning, anticipate medical mgmt. She is otherwise doing well and has been ruled out for ACS.
[2018-10-27] MEDS: Fish Oil 1,000 MG CAP PO SCH ×2 (09:24→19:48)
[2018-10-27] MEDS: Lisinopril/Hydrochlorothiazide 20/25 mg Tablet PO SCH (09:24)
[2018-10-27] MEDS: Aspirin Chewable 81 MG TAB PO SCH (09:24)
[2018-10-27 13:18] LABS: Amphetamine Not Detected (NotDetected); Barbiturates Screen Not Detected (NotDetected); Benzodiazepine Screen Not Detected (NotDetected); Cocaine Metabolite Screen Not Detected (NotDetected); Medtox Reader # READER 4; Methadone Not Detected (NotDetected); Methamphetamine Not Detected (NotDetected); Opiate Screen Not Detected (NotDetected); Phencyclidine (PCP) Not Detected (NotDetected); THC/Cannabinoid Screen Not Detected (NotDetected); Tricyclic Screen Not Detected (NotDetected)
[2018-10-27 13:19] LABS: Medtox Control Line Valid? VALID (VALID); Oxycodone Screen Not Detected (NotDetected)
[2018-10-27] MEDS: Acetaminophen 325 MG TAB PO PRN (19:48)
[2018-10-27] MEDS ORDERED: Atorvastatin Calcium 40 MG TAB PO SCH (21:00)
[2018-10-28 02:27] VITALS: TEMP 97.9
--- NOTE | 2018-10-28 03:01 | CON ---
DATE OF CONSULTATION: HISTORY: Ivania Romero is a 48-year-old white female, whom I evaluated in February 2018. She was hospitalized with chest discomfort, had palpable chest wall tenderness. She had left-sided chest pressure that radiated to the left side of her jaw and into her left arm with left arm tingling. The pain was somewhat pleuritic in nature. She was given intravenous morphine, which improved the pain. She underwent Cardiolite scan, which revealed a small reversible defect in the anterior wall. This was then followed by cardiac catheterization, which revealed the ejection fraction of 50% to 55%. There were proximal LAD and circumflex calcifications. There was a 20% proximal LAD lesion, 20% proximal circumflex, and 20% mid right coronary artery lesion. She was placed on medications for blood pressure and statin medication. She was seen in the office in July 2018, denied any further chest discomfort. She now is admitted with somewhat similar pain. She had pressure in the midportion and left side of her chest, it then radiated to her left arm and tingling in her arm, similar to her symptoms in February 2018. EKGs and cardiac enzymes have been unremarkable. PAST MEDICAL HISTORY: Hypertension and hypercholesterolemia. No history of diabetes. HOME MEDICATIONS: 1. Ecotrin 81 daily. 2. Metoprolol 50 daily. 3. Lisinopril/hydrochlorothiazide 10/12.5 daily. 4. Fish oil 2000 mg b.i.d. 5. Atorvastatin 40 at bedtime. ALLERGIES: NONE. SOCIAL HISTORY: She smokes two packs per day. She occasionally drinks. FAMILY HISTORY: Mother and father have myocardial infarction. REVIEW OF SYSTEMS: A 12-point review of systems is unremarkable. PHYSICAL EXAMINATION: VITAL SIGNS: Blood pressure 123/65 and pulse is 78. HEENT: PERRL. NECK: Supple. CHEST: Clear. CARDIAC: S1 and S2 normal without any S3, S4, or murmurs. ABDOMEN: Normal bowel sounds without tenderness or organomegaly. EXTREMITIES: Revealed no clubbing, cyanosis, or edema. NEUROLOGIC: Grossly intact. SKIN: Warm and dry. MUSCULOSKELETAL: Revealed palpable lower sternal tenderness that reproduces her pain as well as tenderness on the left side of her chest. LABORATORY DATA: EKG revealed normal sinus rhythm and was unremarkable. Urine drug screen is normal. Cholesterol 197, triglycerides 396, HDL 27, and LDL 91. TSH is normal. IMPRESSION: 1. Noncardiac, chest wall pain. 2. Minimal coronary artery disease. 3. Hypertension. 4. Hypercholesterolemia and hypertriglyceridemia. 5. Smoker. 6. Positive family history. PLAN: No further cardiac evaluation is warranted for her chest wall pain when she had a catheterization seven months ago that only showed extremely minimal disease. Consideration could be given to a nonsteroidal medication for her chest wall pain. Since this is not cardiac in nature, I will sign off. Job ID: [id number] MTDD
--- NOTE | 2018-10-28 06:19 | PDOC.FM ---
- Subjective Subjective: pt reports cp as resolved, denies SOB - Objective Vital Signs & Weight: Vital Signs (12 hours) Temp Pulse Resp BP Pulse Ox 10/28/18 02:22 97.9 F 75 15 114/57 L 95 10/27/18 19:00 98.4 F 78 23 H 123/65 95 Weight Weight 107.456 kg I&O: 10/26/18 10/27/18 10/28/18 06:59 06:59 06:59 Intake Total 940 825 Output Total 950 Balance 940 -125 Phys Exam - Physical Examination Constitutional: NAD HEENT: moist MMs Neck: no JVD, full ROM Gastrointestinal: no distention Musculoskeletal: no edema Neurological: moves all 4 limbs Psychiatric: normal affect Skin: no rash Dx/Plan (1) Chest pain Code(s): R07.9 - CHEST PAIN, UNSPECIFIED Status: Acute Qualifiers: Ischemic chest pain type: stable angina pectoris (2) HTN (hypertension) Code(s): I10 - ESSENTIAL (PRIMARY) HYPERTENSION Status: Acute Qualifiers: Hypertension type: essential hypertension Qualified Code(s): I10 - Essential (primary) hypertension - Plan Plan: CAD - multiple risk factors, trop neg, EKG wnl - Known mild disease found on previous Cath in February - most likely msk pain, ibuprofen for relief HTN - Continue home medications CODE STATUS: FULL CODE PCP: Dr. House Disposition: dc home Addendum - Attending - Attending Attestation Date/Time: 10/28/18 9209 I personally evaluated the patient and discussed the management with Dr. Judd. I agree with the History, Examination, Assessment and Plan documented above with any addition or exceptions noted below. Eval'd by cardiology yesterday. Stable for discharge.
[2018-10-28 08:10] VITALS: BP 127/61
[2018-10-28] MEDS: Lisinopril/Hydrochlorothiazide 20/25 mg Tablet PO SCH (08:15)
[2018-10-28] MEDS: Fish Oil 1,000 MG CAP PO SCH (08:16)
[2018-10-28] MEDS: Aspirin Chewable 81 MG TAB PO SCH (08:16)
[2018-10-28] MEDS: Acetaminophen 325 MG TAB PO PRN (08:16)
--- NOTE | 2018-10-31 15:35 | DIS ---
DATE OF ADMISSION: 10/26/2018 DATE OF DISCHARGE: 10/28/2018 ADMITTING ATTENDING: Addi Blanchard MD CONSULTS: Cardiology, Dr. Kota Baird. PROCEDURES: None. IMAGING: None. DISCHARGE MEDICATIONS: 1. Aspirin 81 mg p.o. daily. 2. Lisinopril hydrochlorothiazide 1 tablet p.o. daily. 3. Metoprolol 50 mg p.o. daily. 4. Lipitor 80 mg p.o. at bedtime. DISCHARGE DIAGNOSIS: Atypical chest pain. SECONDARY DIAGNOSES: 1. Coronary artery disease. 2. Hypertension. HISTORY OF PRESENT ILLNESS/HOSPITAL COURSE: Ms. Ivania Romero is a 48-year-old female with past medical history significant for coronary artery disease and hypertension, presents to the emergency department having reported pressure-like chest pain for the past day. This pain she reports as pressure that radiates down into her left arm causing it to feel heavy and additionally, she reports that this pain is made worse with exertion and gets better with rest. Troponins and EKG in the emergency room were within normal limits. The patient was determined that she needed to be admitted and placed in observation for chest pain rule out. At that time since she has been cathed in the past by Dr. Baird, he was consulted to determine whether repeat intervention was needed or patient could be discharged home on medical management. The patient remained stable throughout her hospital stay, did not have any repeat chest pain. Cardiology, Dr. Baird, evaluated the patient and determined that the pain was not cardiac in nature and signed off at that point. The patient was chest pain-free on discharge from hospitalization, instructed to follow up with PCP in regard to chest pain. DISCHARGE INSTRUCTIONS: 1. Location: Home. 2. Diet: Heart healthy. 3. Activity: As tolerated. 4. Followup: Followup with PCP Dr. House in the next 3 to 7 days. Job ID: [id number]
--- NOTE | 2018-11-05 14:52 | EKG ---
Test Reason : Blood Pressure : / mmHG Vent. Rate : 068 BPM Atrial Rate : 068 BPM P-R Int : 144 ms QRS Dur : 086 ms QT Int : 420 ms P-R-T Axes : 049 001 015 degrees QTc Int : 446 ms Normal sinus rhythm Normal ECG Confirmed by ERICA ROBLES M.D. ([id number]), tape editor ABBY GODDARD ([id number]) on 11/05/2018 2:52:35 PM Referred By: Confirmed By:ERICA ROBLES M.D.
== END 2018-10-28 11:38 | disposition home or self-care (01) ==
LOC: ERS 18:54 → 2SW 19:28
PROVIDERS: ADMIT Student in an Organized Health Care Education/Training Program; ATTEND Student in an Organized Health Care Education/Training Program
DX: R07.89 Other chest pain (principal); I10 Essential (primary) hypertension; I25.10 Atherosclerotic heart disease of native coronary artery without angina pectoris; I73.9 Peripheral vascular disease, unspecified; F17.210 Nicotine dependence, cigarettes, uncomplicated; Z79.82 Long term (current) use of aspirin; Z79.899 Other long term (current) drug therapy; Z95.5 Presence of coronary angioplasty implant and graft
CPT/HCPCS: 36415; 80061; 80306; 83735; 84100; 84443; 84484; 93005; 94760; 96360; 96361; 99406; G0378

== ENCOUNTER 2020-06-18 10:06 | Outpatient (CLI) | payer OTHER | END 2020-06-18 10:07 | disposition home or self-care (01) | LOC: BICMAMMO 10:06 | PROVIDERS: ATTEND Family Medicine | DX: Z12.31 Encounter for screening mammogram for malignant neoplasm of breast (principal); Z80.3 Family history of malignant neoplasm of breast | CPT/HCPCS: 77063; 77067 ==